=== PATIENT | male | born 1945 | race Caucasian/White ===

== ENCOUNTER → 2020-02-18 11:07 | Outpatient (CLI) | payer OTHER, SELFPAY ==
[2020-02-18 11:24] LABS: Bacteria Urine None Seen; RBC Urine None Seen (0-5/HPF); WBC Urine None Seen (0-5/HPF)
[2020-02-18 11:58] LABS: Appearance Urine UA CLEAR; Bilirubin Urine UA NEGATIVE (NEGATIVE); Color Urine UA YELLOW; Glucose Urine UA NEGATIVE (Negative); Ketones Urine UA NEGATIVE (NEGATIVE); Leukocyte Esterase Urine UA NEGATIVE (NEGATIVE); Nitrite Urine UA NEGATIVE (Negative); Occult Blood Urine UA NEGATIVE (Negative); Protein Urine UA NEGATIVE (Negative); Specific Gravity Urine UA >=1.030 (1.000-1.035); Urobilinogen Urine UA 0.2 E.U./dL (0.2)
[2020-02-18 12:04] LABS: Hemoglobin A1C% w Est Avg Glu 5.8 % (4.0-6.0)
[2020-02-18 12:10] LABS: Culture Indicated Urine Cult Not Indicated; Urine Comments Microscopic Normal
[2020-02-18 12:16] LABS: BUN Creatinine Ratio 26.4 (6-22); Blood Urea Nitrogen 24 mg/dL (9-20); Calcium 9.1 mg/dL (8.4-10.2); Carbon Dioxide 25 mmol/L (22-32); Chloride 108 mmol/L (98-107); Estimated Glomerular Filt Rate > 60.0 mL/min (>60); Glucose 105 mg/dL (80-110); HEMOLYSIS < 15 (0-50); Potassium 4.6 mmol/L (3.4-5.1); Sodium 140 mmol/L (137-145)
[2020-02-18 14:10] LABS: Add Manual Diff / Slide Review NO; Basophils Absolute Auto 0 /uL (0-100); Basophils Percent Auto 0.6 % (0-2); Eosinophils Absolute Auto 100 /uL (0-450); Eosinophils Percent Auto 2.7 % (2-4); Hematocrit 40.7 % (41-53); Hemoglobin 13.4 g/dL (13.5-17.5); Lymphocytes Absolute Auto 1200 /uL (1100-4500); Lymphocytes Percent Auto 23.1 % (25-40); Mean Corpuscular HGB Conc 32.8 % (30-36); Mean Corpuscular Hemoglobin 29.9 PG (26-34); Mean Corpuscular Volume 91.2 fL (80-100); Monocytes Absolute Auto 600 /uL (0-900); Monocytes Percent Auto 12.3 % (3-14); Neutrophils Absolute Auto 3100 /uL (1500-7000); Neutrophils Percent Auto 61.3 % (50-75); Platelet Count 193 X10^3/uL (150-400); Red Blood Cell Count 4.47 X10^6/uL (4.5-5.9); Red Cell Distribution Width 13.5 % (11.6-14.8); White Blood Cell Count 5.1 X10^3/uL (4.5-11.0)
== END ==
PROVIDERS: PCP Family Medicine; Referring Provider Orthopaedic Surgery; Visit Provider Orthopaedic Surgery
DX: Z01.812 Encounter for preprocedural laboratory examination (principal); Z01.818 Encounter for other preprocedural examination; N39.0 Urinary tract infection, site not specified; R73.9 Hyperglycemia, unspecified
CPT/HCPCS: 36415; 80048; 81001; 83036; 85025; 93005; 93010

== ENCOUNTER → 2020-03-10 08:45 | Outpatient (CLI) | payer OTHER, SELFPAY ==
[2020-03-11 02:14] LABS: COVID19 Sendout Not Detected (Not Detect)
== END ==
PROVIDERS: PCP Family Medicine; Visit Provider Physician Assistant
DX: Z11.59 Encounter for screening for other viral diseases (principal)
CPT/HCPCS: 87635

== ENCOUNTER 2020-03-14 16:45 | Observation (INO) | payer OTHER, SELFPAY ==
[2020-03-11 07:25] VITALS: BMI 27.0
[2020-03-13] VITALS (14 sets, daily range): BP systolic 95–138; BP diastolic 52–77; PULSE 67–85; RESP 12–36; TEMP 36–36.9; O2SAT 95–99; BMI 27.0
--- NOTE | 2020-03-13 | DI.RAD.S_ITS ---
PROCEDURE: [id number] W PEL IF PERFORMED INDICATIONS: ANTERIOR HIP ARTHROPLASTY TECHNIQUE: 4 intraoperative fluoroscopic images of left hip(s). COMPARISON: None. FINDINGS: Intraoperative fluoroscopic images shows left total hip arthroplasty with anatomic alignment of prosthesis. IMPRESSION: Fluoro guidance was provided intraoperatively for left hip arthroplasty. Dictated by: Humble Beard M.D. on 03/13/2020 at 12:52 Approved by: Humble Beard M.D. on 03/13/2020 at 12:59
--- NOTE | 2020-03-13 06:00 | DI.RAD.S_ITS ---
PROCEDURE: XR HIP W PEL IF DONE LT 2V INDICATIONS: left TONJA, anterior TECHNIQUE: AP pelvis and lateral view of the left hip acquired. COMPARISON: [facility], CR, [id number] W PEL IF PERFORMED, 03/13/2020, 9:56. [facility], CR, XR PELVIS WITH LATERAL HIP LEFT, 02/18/2020, 9:59. FINDINGS: Bones: Patient is status post left hip arthroplasty, with hardware components in expected positions. The hip joint appears congruent. The visualized bony structures appear intact. Soft tissues: Overlying postoperative changes are noted. No suspicious soft tissue densities. IMPRESSION: Expected alignment status post placement of left hip arthroplasty. Dictated by: Abdifatah Davis [facility] Interpreted: Enoch Victor MD on 03/13/2020 at 12:18 Approved by: Enoch Victor M.D. on 03/14/2020 at 12:56
[2020-03-13] MEDS: LACTATED RINGERS 1,000 ML 42 ML IV ×4 (07:00→11:11)
[2020-03-13] MEDS: VANCOMYCIN 1,000 MG/200 ML PIGGYBACK 200 MG IV (07:01)
[2020-03-13] MEDS: ACETAMINOPHEN 325 MG TABLET 975 MG PO (07:02)
[2020-03-13] MEDS: PREGABALIN 75 MG CAPSULE PO (07:02)
[2020-03-13] MEDS: CELECOXIB 200 MG CAPSULE PO (07:02)
--- NOTE | 2020-03-13 07:33 | SUR.OPER ---
Supine on padded [place] table with bilateral legs secured in padded positioning boots and suspended in positioning spars, operative leg in traction per surgeon. Head on one pillow. Arm on non-operative side secured on padded armboard <90 degrees abduction. Arm on operative side padded and resting across chest then secured with tape over sheet. Padded perineal post in place per surgeon.
--- NOTE | 2020-03-13 07:51 | P.OP_ITS ---
Operative Date/Time/Diagnoses Date of procedure: 03/13/20 Time of procedure: 07:51 Pre-op diagnosis: left total hip arthroplasty Post-op diagnosis: same Procedure & Clinicians Procedure: left total hip arthroplasty Same procedure as scheduled: Yes Indications: The patient has had progressively worsening left hip pain with radiographic changes consistent with arthritis. Non-operative management has failed and the patient has requested total hip replacement. The risks, benefits and alternatives to surgery were discussed with the patient prior to proceeding. Risks discussed included, but were not limited to, failure to relieve pain, leg length discrepancy, dislocation, stiffness, infection, nerve damage, deep venous thrombosis, pulmonary embolism, stroke, coma, heart attack, permanent paralysis and , as well as the potential need for eventual revision of the prosthetic. Surgeon: Kalli Dillon Aircraft Stress Analyst: Lizandro Cunningham Anesthesia Type: General and Spinal Operative Notes Findings: Severe left hip osteoarthritis, adequate quality bone, adequate stability, moderate bleeding from the acetabulum prior to screw and cup insertion Closure Type: primary Specimen(s): none sent Prosthetic devices, grafts, tissues, transplants, or devices: Dillon and Nephew 62 mm R3 3 cup, neutral poly 36 liner, 120 mm screw, size 10 standard offset anthology, 36+ 4 Oxinium head Estimated Blood Loss (mL): 800 Blood products transfused: none Procedure in detail: The patient was brought to the operating room. Patient was carefully positioned in the supine position. Time-out was performed and antibiotics were given. Anesthesia was induced. He was positioned in the on the table in order to allow hyperextension of the hip. The LEFT lower extremity was prepped and draped in a standard sterile fashion. An anterior left hip incision was made 1 fingerbreadth lateral to the anterior superior iliac spine and extended distally towards the greater trochanter. Dissection was carried out through skin and subcutaneous tissues. The skin and subcutaneous tissues were carefully injected with Lidocaine with epi. Superficial hemostasis was achieved. The fascia over the tensor fascia maria dolores was defined and incised with a knife. Two Allis clamps were used to grasp the fascia. Tensor fascia maria dolores was retracted laterally. A gelpi retractor was placed. Dissection was carried out down along the neck. The circumflex vessels were carefully identified and cauterized with the Aqua Mantis. There was good visualization of the femoral neck. A Cobra was placed superior to the neck and the gluteus fibers were carefully stripped from that superior aspect of the capsule. A 2nd retractor was placed along the inferior aspect of the neck. The rectus insertion along the capsule was partially released. A 3rd retractor that was then gently placed over the rim of the acetabulum under the rectus. Capsule was carefully incised and released from the intertrochanteric line circumferentially superior to the mid sagittal line and inferiorly to the mid sagittal line until the lesser trochanter was palpable. A tag stitch was placed both in the superior and inferior limb of the capsular insertion. Along the acetabulum capsule was also released up to the mid sagittal 12:00 position. A portion of the labrum was resected. A saw was used to perform an osteotomy at the level of the intertrochanteric line and the junction of the superior femoral neck leaving approximately 1 finger breath of residual inferior neck above the lesser trochanter. A 2nd cut was made along the femoral neck at the base of the head and a napkin ring of neck was removed. Corkscrew was placed in the femoral head and the head was removed without difficulty. Retractors were then repositioned around the acetabulum. Residual labrum was resected and additional osteophytes were removed. A reamer that was 4 mm below the templated size was placed by hand in the acetabulum and it was reamed to centralize the acetabulum. There was significant bleeding from the base of the acetabulum. Combination of an Aqua Mantis, the Bovie cautery, and some direct pressure was used to control bony acetabular bleed and which is quite brisk. It was not from a single source. We did mix some FloSeal and ultimately use it in the base of the acetabulum. There was no bleeding from the periphery of the acetabular and no significant bleeding from around the femur. It was then reamed up to 2 under the templated size and fluoroscopy was brought in to confirm the position of the reaming and depth of reaming. I reamed 1 under the anticipated size. A trial cup was placed and noted that it was appropriately sized and fluoroscopy confirmed position and depth. The component was open and inserted without difficulty fluoroscopic imaging was used to confirm that the cup had been adequately seated and was well positioned. A single screw was used to further stabilize the acetabulum. Neutral poly liner was placed. The cup was tested and noted to be stable. There was adequate hemostasis once the polyethylene liner had been placed. We did have an epinephrine soaked slope sponge which we put into the acetabulum during femoral prep but there was really no active bleeding at that point. Attention was then directed to the femur. The femur was gently hyperextended additional capsular release was performed as needed in order to allow adequate visualization of the proximal femur with elevation of the femur. Patient was placed in a hyperextended slightly adducted position with maximum external rotation. Box osteotome was used to check for any residual neck as well as sclerotic bone along the trochanter. [place] pepper was placed in the femur. Additional broaching was performed. Canal finder was used to determine the alignment of the canal and position. Size 1 broach was placed. The canal was then appropriately broached up to the templated size as long as there was adequate stability of the broach and serial advancement of the broach without excessive impingement. Specific attention was directed at avoiding varus attempting to direct the distal aspect of the broach more anteriorly and avoiding excessive anteversion. Trial reduction showed acceptable range of motion, good stability, no posterior impingement, church of leg length and appropriate lateral shuck. I also hyperflexed the hip and checked that there was no impingement anteriorly and there was good stability with flexion, adduction and internal rotation. Marcaine and Exparel were injected.. The stem was placed without difficulty. Repeat trial reduction and x-ray showed acceptable overall position, length, and no evidence of the femoral fracture. Final head was placed. Wound was meticulously irrigated with normal saline. The hip was reduced and additional Exparel and Marcaine were injected. We did a trial with the +0 and a +4 stability was little better and the x-ray looked more anatomic with a +4 femoral neck. The capsule was closed with interrupted nonabsorbable sutures. The fascia of the tensor was closed with interrupted and running Vicryl. No drain was placed. Any tensor fascia maria dolores muscle that appeared to be contused or injured which was a minimal amount was carefully resected. Capsule around the tensor was injected with Exparel and Marcaine. The skin was closed with barbed stitches for the subcutaneous tissue and skin. We also used surgical glue. The wound was dressed sterilely. Brief Betadine soak was also used and was meticulously irrigated with normal saline. Patient was transferred to recovery room in satisfactory condition. Complications: none Post-operative Condition: stable Disposition: Acute Care Plan for aftercare: The patient will be maintained on a standard total hip replacement protocol with weight bearing as tolerated and anterior hip precautions. The patient will receive Aspirin and sequential compression devices for DVT prophylaxis. The patient will be discharged home when safe for the home environment.
--- NOTE | 2020-03-13 07:51 | PM.PREOP ---
Pre-operative Note COVID-19 COVID-19 status: Negative Interval Note History & Physical reviewed/Exam performed by Physician: Yes Changes to H&P: No
[2020-03-13] MEDS: CEFAZOLIN 2 GM/100 ML FROZ.PIGGY IV ×2 (08:05→16:55)
[2020-03-13] MEDS: BUPIVACAINE LIPOSOME 266 MG/20 ML VIAL INJ (08:36)
[2020-03-13] MEDS: BUPIVACAINE 0.25% W/ EPI 30 ML VIAL 60 ML INJ (08:36)
[2020-03-13] MEDS: SODIUM CHLORIDE IRRIG SOLUTION 250 ML, POVIDONE-IODINE SPONGE STICKS 1 APPLIC IRR (08:38)
[2020-03-13] MEDS: TRANEXAMIC ACID 1,000 MG VIAL 2000 MG INJ ×2 (08:40→10:58)
[2020-03-13] MEDS: EPINEPHrine 1 MG/ML IRR (10:00)
--- NOTE | 2020-03-13 12:17 | SUR.PHASEI ---
Pt transferred to room 210. Belongings with pt. Received in room by ESTRELLA Siddiqui. bedside handoff given.
[2020-03-13] MEDS: LACTATED RINGERS 1,000 ML 125 ML IV ×2 (12:56→20:28)
[2020-03-13] MEDS: IBUPROFEN 400 MG TABLET PO ×3 (14:47→20:28)
[2020-03-13] MEDS: ACETAMINOPHEN 325 MG TABLET 650 MG PO ×2 (14:47→20:28)
--- NOTE | 2020-03-13 16:47 | PT.IIE ---
Current Diagnoses Unilateral primary osteoarthritis, left hip (03/13/20) Surgery Performed Operation Date: 03/13/20 07:45 Actual Procedures p Total Hip Arthroplasty/Anterior Approach(Left) - Kalli Dillon MD Surgical History (Last Updated 03/11/20 @ 08:15 by Donya Petit RN) History of vasectomy (Acute) Hx of appendectomy (Acute) Hx of removal of cyst (Acute) Hx of thumb surgery (Acute) Hx of tonsillectomy (Acute) Hx of transurethral resection of prostate (Acute) S/P excision of neuroma (Acute) Medical History (Last Updated 03/11/20 @ 08:17 by Donya Petit RN) Acid reflux (Acute) Enlarged prostate (Acute) Hearing impaired (Acute) Osteoarthritis (Acute) RLS (restless legs syndrome) (Acute) Skin cancer (Acute) Physical Therapy Inpatient Evaluation/Re-Eval M1 PT/OT-IP Prior Functional Status Start: 03/13/20 13:40 Freq: NEEDED Status: Active Protocol: Document 03/13/20 16:20 AW (Rec: 03/13/20 16:47 AW [email or web address]) Medical Review Prior Functional Status Medical History Reviewed Yes Communication Pt is [place] and wears bilateral hearing aids. He is an effective verbal communicator. Mobility and Gait Independent without assistive device. Pt is active, including swimming, but he has been unable to participate in recent weeks due to increasing pain. Activities of Daily Living and IADL's Pt remains independent with I/ ADL's but endorses increasing difficulty with lower body dressing tasks. Social History Household Members spouse Living Arrangements House Number of Floors (Floors) Two Floors Number of Stairs To Enter/Railing? 1 step without railing into the garage. From the garage, pt must climb another 2 steps into the house. There is no railing but pt states there are freezers next to the stairs which he can use for support. 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 Home Environment High Toilet,Walk in Shower, Built-In Shower Seat Home Equipment Front Wheel Walker,Straight Cane,Raised Toilet Seat w/ Armrests,Link Assembler Employment Status Retired Additional Social History Comment Pt lives with his , Kirsten, who is also retired. She will be available and able to assist as needed. M2 PT-IP Current Condition Start: 03/13/20 13:40 Freq: NEEDED Status: Active Protocol: Document 03/13/20 16:20 AW (Rec: 03/13/20 16:47 AW [email or web address]) Physical Therapy Current Condition Current Condition Evaluation Date 03/13/20 Treatment Diagnosis L TONJA with anterior approach; difficulty in walking Onset Date 03/13/20 Precautions Anterior Hip Precautions No Hip Extension,No Hip External Rotation Weight Bearing Status Weight Bearing Status Weight Bear as Tolerated M3 PT-IP Subjective Start: 03/13/20 13:40 Freq: NEEDED Status: Active Protocol: Document 03/13/20 16:20 AW (Rec: 03/13/20 16:47 AW [email or web address]) Subjective Physical Therapy Visit Type Type Initial Evaluation Visit Start Time 15:28 Visit Stop Time 16:10 Total Visit Minutes 42 Physical Therapy Visit Comments Patient Comments Pt is willing to participate with PT Patient Goals Pt plans to return home with spouse support. Therapy Pain Assessment Pain When Pain Assessed During Mobility Pain Present Pain Present Denied Pain M4 PT-IP Mobility and Gait Start: 03/13/20 13:40 Freq: NEEDED Status: Active Protocol: Document 03/13/20 16:20 AW (Rec: 03/13/20 16:47 AW [email or web address]) PT-Bed Mobility Assessment Supine to Sit Supine to Sit Minimal Assistance,1 Person Assistance Sit to Supine Sit to Supine Minimal Assistance,1 Person Assistance Scooting Scooting to Edge of Bed Contact Guard Assistance PT-Transfer Assessment Sit to and From Stand Sit to and from Stand Contact Guard Assistance,1 Person Assistance,Use of Upper Extremities Equipment Transfer Assistive Device Gait Belt,Front Wheeled Walker Orthotic/Prosthetic Devices or Brace: No Transfers Transfer Destination Bed Transfer Technique Forward/Backward Scoot Transfer Ability Level of Assist Minimal Assistance,1 Person Assistance Comments Mobility Comments Pt was lying in the bed when PT arrived. Supine BP was 127/ 73 HR 76. Pt reported good sensation to BLE and denied pain. He transitioned from supine to long sitting min A x 1 and then pivoted his legs toward the right side of the bed. He required CGA for scooting toward EOB as he reported sensation of lightheadedness which abated as he sat for two minutes. Pt completed sit to stand min A x 1 using FWW and reported increasing lightheadedness immediately. Pt stood for 1 minute before needing to sit. BP was 93/68 HR 90. After three minutes sitting, BP remained 90/46 HR 96. Pt was able to scoot himself laterally up toward HOB and then was assisted back to supine. PT positioned pt in trendelenburg with BP recovering to 124/68 after 4 minutes. Pt was repositioned with HOB elevated and bed alarm on, call light and all needs within reach. Reported situation to RN. Gait Assessment Comments Gait Comments Pt unable at this time. Stair Climbing Assessment Comments Stair Climbing Comments Not assessed due to hypotension in standing. PT-Balance Assessment Sitting Balance and Reactions Static Sitting Balance Ability Good Dynamic Sitting Balance Ability Good Standing Balance and Reactions Static Standing Balance Ability Fair Device Used FWW M5 PT-IP Objective Assessments Start: 03/13/20 13:40 Freq: NEEDED Status: Active Protocol: Document 03/13/20 16:20 AW (Rec: 03/13/20 16:47 AW [email or web address]) Orientation Orientation/Cognition Level of Alertness Alert Orientation Name,Day of Week,Place, Situation Language Function Ability Hard of Hearing Safety Awareness Understands Safety Issues Memory Description No Deficits Noted Gross Range of Motion Lower Extremity ROM Assessment Left Impaired Strength Lower Extremity Strength Assessment Left Impaired Coordination Assessment Gross Coordination Gross Coordination WNL Sensation Assessment Sensation Gross Sensation WNL Comments Sensation Comments Pt denies numbness BLE Muscle Tone Muscle Tone WNL Yes M6 PT-IP Treatment Start: 03/13/20 13:40 Freq: NEEDED Status: Active Protocol: Document 03/13/20 16:20 AW (Rec: 03/13/20 16:47 AW [email or web address]) Physical Therapy Treatment Exercises Exercises Ankle Pumps,Gluteal Sets,Quad Sets,Heel Slides Education Education Provided Precautions,Weight Bearing Status,Post-Op Packet,Safety Other Treatments Other Treatment Performed Provided education on role of PT, plan of care, weightbearing status, and anterior hip precautions. M7 PT-IP Assessment and Plan Start: 03/13/20 13:40 Freq: NEEDED Status: Active Protocol: Document 03/13/20 16:20 AW (Rec: 03/13/20 16:47 AW [email or web address]) PT Summary Assessment and Plan Potential Rehabilitation Potential Good Status of Condition at Evaluation Evolving Summary Impairments ROM,Strength,Balance,Bed Mobility,Transfers,Gait Assessment Summary Jim is a 74 yo man seen for PT evaluation on POD0 following L TONJA with anterior approach. He is independent in all regards at baseline. Evaluation was limited due to pt hypotension in standing requiring return to supine. Pt required min assist with bed mobility and standing but was unable to attempt transfer at this time. PT anticipates this pt will be safe to discharge home with assist and outpatient PT once medically cleared. Goals Bed Mobility Goal Standby Assistance Transfer Goal Standby Assistance,Front Wheeled Walker Gait Goal Standby Assistance,Front Wheel Walker Gait Distance 250 Other Goals - up/down 2 steps with unilateral rail or DATA COMMUNICATIONS ENGINEER - up/down platform step with FWW for entry to the gar Days to Meet Goals 2 Frequency of Treatment Frequency Of Treatment Twice a Day Treatment Plan Physical Therapy Treatment Plan Bed Mobility Training,Transfer Training,Gait Training, Therapeutic Exercise,Balance Retraining,Post Op Education, Discharge Planning,Hot or Cold Pack Other Recommendations and Next Treatment transfers, gait training with Focus FWW, stairs when able Recommendations To Nursing Amount of Assist Needed 1 Person Assist Discharge Recommendations PT Discharge Recommendations Home with Assistance, Outpatient PT Transportation Needs at Discharge Private Vehicle
[2020-03-13] MEDS: FINASTERIDE 5 MG TABLET PO (16:56)
[2020-03-13] MEDS: PANTOPRAZOLE 20 MG TABLET PO (16:56)
[2020-03-13] MEDS: DOCUSATE 100 MG CAPSULE PO (20:28)
[2020-03-13] MEDS: ASPIRIN EC 81 MG TABLET PO (20:28)
[2020-03-13] MEDS: GABAPENTIN 300 MG CAPSULE 600 MG PO (20:28)
[2020-03-14] VITALS (9 sets, daily range): BP systolic 68–128; BP diastolic 48–69; PULSE 66–90; RESP 16–19; TEMP 36.2–37.1; O2SAT 96–99
[2020-03-14] MEDS: CEFAZOLIN 2 GM/100 ML FROZ.PIGGY IV (00:13)
[2020-03-14] MEDS: IBUPROFEN 400 MG TABLET PO ×6 (00:45→20:19)
[2020-03-14] MEDS: LACTATED RINGERS 1,000 ML 125 ML IV (05:08)
[2020-03-14 06:12] LABS: Hematocrit 29.2 % (41-53); Hemoglobin 9.7 g/dL (13.5-17.5)
--- NOTE | 2020-03-14 07:48 | P.PN_ITS ---
Subjective Subjective Date Patient Seen: 03/14/20 Time Patient Seen: 07:48 Interval history: Doing well overnight. Minimal pain. Somewhat lightheaded the 1st time he attempted to get up with therapy but but has been sitting up in bed and moving around without difficulty. Exam Vital Signs (past 8 hours): - 03/14/20 00:02 03/14/20 04:35 Temperature 97.4 F L 97.2 F L Pulse Rate 68 66 Respiratory Rate 16 16 Blood Pressure 93/48 L 113/60 Pulse Oximetry 96 97 Oxygen Delivery Method Room Air Oxygen Flow Rate 0 Narrative Exam Narrative: Alert oriented, dressing is dry no significant pain with range of motion in his hip, able to do a straight leg raise and flexes hip without difficulty, calf soft bilaterally Objective Labs Result Diagrams: 03/14/20 05:29 Labs: Laboratory Results - last 24 hr 03/14/20 05:29 Hgb 9.7 L Hct 29.2 L Assessment & Plan Assessment & Plan narrative: Doing well status post left total hip arthroplasty anterior approach. Plan mobilize out of bed with physical therapy. Discontinue his Chacon catheter. Anticipate discharge to home after therapy today. Follow- up is scheduled. I gave him a prescription for oxycodone which he can have is an emergency and probably will not fill.
[2020-03-14] MEDS: ACETAMINOPHEN 325 MG TABLET 650 MG PO ×3 (08:09→20:15)
[2020-03-14] MEDS: ASPIRIN EC 81 MG TABLET PO ×2 (08:09→20:15)
[2020-03-14] MEDS: DOCUSATE 100 MG CAPSULE PO ×2 (08:09→20:16)
--- NOTE | 2020-03-14 09:29 | CM.DANOTE ---
Addendum entered by Reema Guzman LPN 03/14/20 13:33: Met with pt now and introduced self and role. Pt is a 74 year old male who admitted yesterday for a scheduled L TONJA/anterior approach. Surgeon: Dr. Alanna Dillon Payer: Christopher DEVI Admission status: SDC/confirmed by TEX Hernandez. Pt is found up in room with HOSE OPERATOR Kourtney for second session of the day. Morning treatment was hampered by symptomatic hypotension. Pt says this has been something he has had all of his life and he has learned to be cautious when getting to his feet from lying or sitting position. RN caring for pt today has updated Dr. Dillon and it is now unclear if pt will be medically cleared for the d/c today. P : Pt does confirm his plan for home with his 's supportive assist and PT reports that pt is doing well towards this goal as long as BP does not remain an issue. UR ESTRELLA Hernandez is updated. Original Note: Discharge Planning/Care Management DCP: assessment: case received, EMR reviewed and d/c order noted. Dr. Dillon states pt may d/c home today with OUTPT PT once cleared by PT. CM Discharge Assessment Start: 03/14/20 09:29 Freq: Status: Active Protocol: Document 03/14/20 09:29 ITV (Rec: 03/14/20 09:29 ITV [id number]) Discharge Planning Assessment Advance Directives? No History Provided By Medical Record Prior Living Arrangements House Household Members spouse Review Status In Process Pre-Anesthesia Assessment Start: 03/11/20 07:25 Freq: Status: Active Protocol: Document 03/11/20 07:25 CAB (Rec: 03/11/20 08:31 CAB [id number]) Pre-Anesthesia Assessment Preferred Name Justino Patient Information Reviewed Via Phone Assessment Assessment Completed With Patient H&P Completed Within 30 Days Yes Diagnostic Results BMP/CMP,CBC,EKG,Other Comment Labs/EKG @ [facility], COVID screen @ [facility] 03/10/20 Negative Primary Care Provider Tayo Andrea Seen Specialist in Last 12 Months Yes Specialist Seen Motor And Controls Tester,Orthopedist Primary Language Latvian Pattern Grader Cutter Required No Height 190.5 cm Weight 97.976 kg Body Mass Index (BMI) 27.0 Hearing Ability Hard of Hearing,Use of Hearing Aid Visual Assist Glasses Dentition Type Teeth, Natural Present Barriers to Learning Auditory Hx Anesthesia Reactions No Hx Family Anesthesia Reaction No Hx Malignant Hyperthermia No Hx Blood Transfusions No Anesthesia Review Requested No alcohol intake former Smoking Status Never smoker Substance Use Type does not use Pain Present Pain Reported Musculoskeletal Symptoms Abnormal Gait,Back Pain, Difficulty Walking,Joint Pain, Limited Range of Motion, Numbness,Radiating Pain into Limb,Tingling History of Falling (Recent or History of No ) Patient is completely paralyzed or No completely immobile Mental Status Oriented to own ability Comment Normally active w/daily swimming Is patient on oxygen? No Does patient have BURTON/SOB No Hx Sleep Apnea No Currently Taking a Beta Haylee No Can You Climb a Flight of Stairs Without Yes SOB Hx Chest Pain No Hx SOB No Hx Syncope or Dizziness No Anti-Coagulant Therapy No Has a Advertising Account Representative No Cardiac Testing No Hx Pacemaker/ICD No Pacemaker Rep Required? No Cardiac Clearance Received Not Applicable Diet Type At Home Regular dysphagia No Gastrointestinal Symptoms Constipation,Reflux Genitourinary Symptoms Change in Urinary Stream Bladder Pattern Nocturia,Retention Urinary Catheter Present No Hx Urinary Self Catheterization No Diabetes Yes HgbA1C 5.8 Date 02/18/20 Hx Drug Resistant Organism No Presence of External or Internal Medical Yes: [place] hearing aids Devices Have you had any close contact with No someone diagnosed with COVID-19? Marital Status Lives With spouse Prior Living Arrangements House Number of Floors (Floors) Two Floors Support System Spouse Does the Patient Have Assistance After Yes Surgery Patient Discharge Plan Description Return Home Comment Pt advised possible overnight length of stay per surgeon Feels Safe in Current Environment Yes Been Physically Hurt or Threatened By a No Person in Current Environment Do you have thoughts of harming yourself None or others? Are you currently considering suicide? No Do you have a plan to hurt yourself or No Plan others? Do You Have Any Spiritual Beliefs That No May Affect Your HC Choices? Do You Have Any Cultural Practices That No May Affect Your HC Choices? Comment Oriental Orthodox Who Can We Speak to About Patient's Care Family, family Identifying Code for Release of Patient Declines to issue Information Health Care Proxy/Next of Kin Kirsten () Health Care Proxy Emergency Contact Name Kirsten () Emergency Contact Advance Directives? No Power of Electronics Warfare Technician No PAC Instructions Durable medical equipment, Medications to take/avoid, Nasal antibiotic,No ETOH/ petroleum product on skin DOS, NPO,Pre-surgical wash,Sturdy shoes/comfortable clothes,Do not bring valuables and remove jewelry
--- NOTE | 2020-03-14 10:47 | PC.NURSE ---
Addendum entered by Alber Blanco R.N. 03/14/20 15:39: Left message w/ Dr. Dillon at 1540 asking for patient to stay one more night. Addendum entered by Alber Blanco R.N. 03/14/20 15:33: Bladder scan was 173, at 1350. At 1530 patient voided 700cc. PT is concerned about patient leaving, will call Dr. Dillon and leave a message that patient should stay one more night. Addendum entered by Alber Blanco R.N. 03/14/20 13:46: Patient still hypotensive w/ physical therapy 74/51. 4 cups of water w/ ice given to patient. Patient still hasn't urinated since Catheter was pulled this AM. I will ask TRAVELING FREIGHT AGENT to do a bladder scan. Original Note: Patient was up w/ PT, and patient was hypotensive. BP's went down to 68/50, 82/57. Patient was symptomatic feeling fuzzy. Will call Dr. Dillon and alert her of patient progress.
--- NOTE | 2020-03-14 10:54 | PT.IPTN ---
Current Diagnoses Unilateral primary osteoarthritis, left hip (03/13/20) Surgery Performed Operation Date: 03/13/20 07:45 Actual Procedures p Total Hip Arthroplasty/Anterior Approach(Left) - Kalli Dillon MD Physical Therapy Treatment Note M2 PT-IP Current Condition Start: 03/13/20 13:40 Freq: NEEDED Status: Active Protocol: Document 03/13/20 16:20 AW (Rec: 03/13/20 16:47 AW [email or web address]) Physical Therapy Current Condition Current Condition Evaluation Date 03/13/20 Treatment Diagnosis L TONJA with anterior approach; difficulty in walking Onset Date 03/13/20 Precautions Anterior Hip Precautions No Hip Extension,No Hip External Rotation Weight Bearing Status Weight Bearing Status Weight Bear as Tolerated M3 PT-IP Subjective Start: 03/13/20 13:40 Freq: NEEDED Status: Active Protocol: Document 03/14/20 10:30 KS (Rec: 03/14/20 12:39 KS [id number]) Subjective Physical Therapy Visit Type Type Treatment Note Visit Start Time 10:30 Visit Stop Time 10:54 Total Visit Minutes 24 Number of CROSS ROLLER Visits 1 Physical Therapy Visit Comments Patient Comments Pt is willing to participate with PT Patient Goals Pt plans to return home with spouse support. M4 PT-IP Mobility and Gait Start: 03/13/20 13:40 Freq: NEEDED Status: Active Protocol: Document 03/14/20 10:30 KS (Rec: 03/14/20 12:39 KS [id number]) PT-Bed Mobility Assessment Supine to Sit Supine to Sit Contact Guard Assistance,1 Person Assistance,Head of Bed Elevated Sit to Supine Sit to Supine Contact Guard Assistance,1 Person Assistance Scooting Scooting to Edge of Bed Contact Guard Assistance PT-Transfer Assessment Sit to and From Stand Sit to and from Stand Contact Guard Assistance,1 Person Assistance,Use of Upper Extremities Equipment Transfer Assistive Device Gait Belt,Front Wheeled Walker Orthotic/Prosthetic Devices or Brace: No Transfers Transfer Destination Bed Transfer Technique Forward/Backward Scoot Transfer Ability Level of Assist Contact Guard Assistance,1 Person Assistance,Use of Upper Extremities Comments Mobility Comments Pt in bed upon arrival from therapy and wanting to ambulate. Pt CGA for sup<>sit w/ HOB elevated and CGA for scooting to EOB. CGA for sit<> stand, pt able to maintain standing 2 min w/ FWW, however pt was hypotensive, w/ BP dropping to 68/50 upon standing and feeling slightly symptomatic w/ feelings of fuzziness. Pt instructed to sit back down and BP:82/57. Pt CGA for sit<>sup and left in bed w/ all needs in reach. Gait Assessment Comments Gait Comments Pt unable at this time d/t symptomatic low BP. Stair Climbing Assessment Comments Stair Climbing Comments Not assessed due to hypotension in standing. PT-Balance Assessment Sitting Balance and Reactions Static Sitting Balance Ability Good Dynamic Sitting Balance Ability Good Standing Balance and Reactions Static Standing Balance Ability Fair Device Used FWW M5 PT-IP Objective Assessments Start: 03/13/20 13:40 Freq: NEEDED Status: Active Protocol: Document 03/13/20 16:20 AW (Rec: 03/13/20 16:47 AW [email or web address]) Orientation Orientation/Cognition Level of Alertness Alert Orientation Name,Day of Week,Place, Situation Language Function Ability Hard of Hearing Safety Awareness Understands Safety Issues Memory Description No Deficits Noted Gross Range of Motion Lower Extremity ROM Assessment Left Impaired Strength Lower Extremity Strength Assessment Left Impaired Coordination Assessment Gross Coordination Gross Coordination WNL Sensation Assessment Sensation Gross Sensation WNL Comments Sensation Comments Pt denies numbness BLE Muscle Tone Muscle Tone WNL Yes M6 PT-IP Treatment Start: 03/13/20 13:40 Freq: NEEDED Status: Active Protocol: Document 03/14/20 10:30 KS (Rec: 03/14/20 12:39 KS [id number]) Physical Therapy Treatment Exercises Exercises Ankle Pumps,Gluteal Sets,Quad Sets,Heel Slides Education Education Provided Precautions,Weight Bearing Status,Post-Op Packet,Safety Other Treatments Other Treatment Performed Reviewed ant hip precautions M7 PT-IP Assessment and Plan Start: 03/13/20 13:40 Freq: NEEDED Status: Active Protocol: Document 03/14/20 10:30 KS (Rec: 03/14/20 12:39 KS [id number]) PT Summary Assessment and Plan Potential Rehabilitation Potential Good Status of Condition at Evaluation Evolving Summary Impairments ROM,Strength,Balance,Bed Mobility,Transfers,Gait Assessment Summary Pt remains limited by symptomatic low BP, but is CGA for bed mobility and sit<> stands. Able to recall anterior hip precautions. D/c depending on pts progress and will have to complete staits prior to d/c. Anticipating pt to mobilize and progress well after BP stabilized. Goals Bed Mobility Goal Standby Assistance Transfer Goal Standby Assistance,Front Wheeled Walker Gait Goal Standby Assistance,Front Wheel Walker Gait Distance 250 Other Goals - up/down 2 steps with unilateral rail or TRADEMARK AFFIXER - up/down platform step with FWW for entry to the to Meet Goals 2 Frequency of Treatment Frequency Of Treatment Twice a Day Treatment Plan Physical Therapy Treatment Plan Bed Mobility Training,Transfer Training,Gait Training, Therapeutic Exercise,Balance Retraining,Post Op Education, Discharge Planning,Hot or Cold Pack Other Recommendations and Next Treatment transfers, gait training with Focus FWW, stairs when able Recommendations To Nursing Amount of Assist Needed 1 Person Assist Discharge Recommendations PT Discharge Recommendations Home with Assistance, Outpatient PT Transportation Needs at Discharge Private Vehicle
--- NOTE | 2020-03-14 13:40 | PT.IPTN ---
Current Diagnoses Unilateral primary osteoarthritis, left hip (03/13/20) Surgery Performed Operation Date: 03/13/20 07:45 Actual Procedures p Total Hip Arthroplasty/Anterior Approach(Left) - Kalli Dillon MD Physical Therapy Treatment Note M2 PT-IP Current Condition Start: 03/13/20 13:40 Freq: NEEDED Status: Active Protocol: Document 03/13/20 16:20 AW (Rec: 03/13/20 16:47 AW [email or web address]) Physical Therapy Current Condition Current Condition Evaluation Date 03/13/20 Treatment Diagnosis L TONJA with anterior approach; difficulty in walking Onset Date 03/13/20 Precautions Anterior Hip Precautions No Hip Extension,No Hip External Rotation Weight Bearing Status Weight Bearing Status Weight Bear as Tolerated M3 PT-IP Subjective Start: 03/13/20 13:40 Freq: NEEDED Status: Active Protocol: Document 03/14/20 13:04 KS (Rec: 03/14/20 15:41 KS [id number]) Subjective Physical Therapy Visit Type Type Treatment Note Visit Start Time 13:04 Visit Stop Time 13:40 Total Visit Minutes 36 Number of DIGITAL COMMUNITY MANAGER Visits 2 Physical Therapy Visit Comments Patient Comments Pt is willing to participate with PT Patient Goals Pt plans to return home with spouse support. M4 PT-IP Mobility and Gait Start: 03/13/20 13:40 Freq: NEEDED Status: Active Protocol: Document 03/14/20 13:04 KS (Rec: 03/14/20 15:41 KS [id number]) PT-Bed Mobility Assessment Scooting Scooting to Edge of Bed Contact Guard Assistance PT-Transfer Assessment Sit to and From Stand Sit to and from Stand Contact Guard Assistance,1 Person Assistance,Use of Upper Extremities Equipment Transfer Assistive Device Gait Belt,Front Wheeled Walker Orthotic/Prosthetic Devices or Brace: No Transfers Transfer Destination Chair,Toilet Transfer Technique pt ambulated w/ FWW Transfer Ability Level of Assist Contact Guard Assistance,1 Person Assistance,Use of Upper Extremities Comments Mobility Comments Pt in chair upon arrival from therapy and BP: 95/54. Pt sit< >stand w/ FWW CGA w/ cues for hand placement. After 2 min standing, pts BP: 87/53 and asymptomatic. Pt then ambulated to toilet, but was unable to void, pts BP assessed in standing again and 95/49. Pt then ambulated ~40 ft in room w/ FWW and CGA. Pt then stand<>sit for rest break and BP: 99/55 in sitting. Pt sit<>stand again and BP dropped to 74/51. Instructed pt to sit back down. Pt left in room w/ RN and all needs in reach. Gait Assessment Gait Gait Assistance Required: Contact Guard Assist,1 Person Assist Distance (Feet) 50 Able to Maintain Weight Bearing Status Yes During Gait Assistive Devices Assistive Device Gait Belt,Front Wheeled Walker Orthotic/Prosthetic Devices or Brace: No Gait Deviations General Gait Pattern Antalgic,Decreased Stride Length,Decreased Feet Clearance Factors Limiting Gait Function Factors Limiting Gait Function Decreased Activity Tolerance, Decreased Strength,Limited Range of Motion,Pain Comments Gait Comments Pt ambulated ~50 ft total w/ FWW and CGA. Pt has decreased stride and foot clearance and needed cues for FWW management . Pt relying heavily on BUE to offload LLE when ambulating. Stair Climbing Assessment Comments Stair Climbing Comments Not assessed due to hypotension in standing. Pt will need to complete prior to d/c. PT-Balance Assessment Sitting Balance and Reactions Static Sitting Balance Ability Good Dynamic Sitting Balance Ability Good Standing Balance and Reactions Static Standing Balance Ability Fair Dynamic Standing Balance Ability Fair Device Used FWW M5 PT-IP Objective Assessments Start: 03/13/20 13:40 Freq: NEEDED Status: Active Protocol: Document 03/13/20 16:20 AW (Rec: 03/13/20 16:47 AW [id number]) Orientation Orientation/Cognition Level of Alertness Alert Orientation Name,Day of Week,Place, Situation Language Function Ability Hard of Hearing Safety Awareness Understands Safety Issues Memory Description No Deficits Noted Gross Range of Motion Lower Extremity ROM Assessment Left Impaired Strength Lower Extremity Strength Assessment Left Impaired Coordination Assessment Gross Coordination Gross Coordination WNL Sensation Assessment Sensation Gross Sensation WNL Comments Sensation Comments Pt denies numbness BLE Muscle Tone Muscle Tone WNL Yes M6 PT-IP Treatment Start: 03/13/20 13:40 Freq: NEEDED Status: Active Protocol: Document 03/14/20 13:04 KS (Rec: 03/14/20 15:41 KS [id number]) Physical Therapy Treatment Education Education Provided Precautions,Weight Bearing Status,Post-Op Packet,Safety M7 PT-IP Assessment and Plan Start: 03/13/20 13:40 Freq: NEEDED Status: Active Protocol: Document 03/14/20 13:04 KS (Rec: 03/14/20 15:41 MARION [id number]) PT Summary Assessment and Plan Potential Rehabilitation Potential Good Status of Condition at Evaluation Evolving Summary Impairments ROM,Strength,Balance,Bed Mobility,Transfers,Gait Progress Towards Goals Slow Progress due to Medical Issues Assessment Summary Pt able to ambulate ~50 ft this PM and CGA for transfers and ambulation w/ FWW. Pt remains limited by low BP 99/ 55 in sitting and dropped to 74/51 in standing. Pt will have to complete stair training prior to d/c. Anticipating pt will be able to return home after stair training/ additional acute rehab treatment and when medically stable. Goals Bed Mobility Goal Standby Assistance Transfer Goal Standby Assistance,Front Wheeled Walker Gait Goal Standby Assistance,Front Wheel Walker Gait Distance 250 Other Goals - up/down 2 steps with unilateral rail or HEAD GAUGE UNIT OPERATOR - up/down platform step with FWW for entry to the Days to Meet Goals 2 Frequency of Treatment Frequency Of Treatment Twice a Day Treatment Plan Physical Therapy Treatment Plan Bed Mobility Training,Transfer Training,Gait Training, Therapeutic Exercise,Balance Retraining,Post Op Education, Discharge Planning,Hot or Cold Pack Other Recommendations and Next Treatment transfers, gait training with Focus FWW, stairs when able Recommendations To Nursing Amount of Assist Needed 1 Person Assist Discharge Recommendations PT Discharge Recommendations Home with Assistance, Outpatient PT Transportation Needs at Discharge Private Vehicle
[2020-03-14] MEDS: PANTOPRAZOLE 20 MG TABLET PO (17:16)
[2020-03-14] MEDS: FINASTERIDE 5 MG TABLET PO (17:17)
[2020-03-14] MEDS: GABAPENTIN 300 MG CAPSULE 600 MG PO (20:16)
--- NOTE | 2020-03-14 21:56 | PC.NURSE ---
PT is A and O x 4, VSS, BP = 104/60, HR 74. Pt is independent in room, rates pain 2-4/10. He is eating and drinking, voiding qs, + BTs, and able to sleep. IS = 2500.
[2020-03-15] MEDS: IBUPROFEN 400 MG TABLET PO ×3 (00:26→09:21)
[2020-03-15 00:57] VITALS: BP 103/49; PULSE 81; RESP 16; TEMP 36.4; O2SAT 94
[2020-03-15 03:10] VITALS: BP 102/56; PULSE 80; RESP 16; TEMP 36.7; O2SAT 95
[2020-03-15 07:30] LABS: Hematocrit 26.7 % (41-53)
[2020-03-15 07:55] VITALS: PULSE 72; RESP 16; O2SAT 98
[2020-03-15 08:46] VITALS: BP 117/77; BP 118/68; BP 87/49; PULSE 75; PULSE 82; PULSE 94
[2020-03-15 09:15] VITALS: BP 116/70; PULSE 80; RESP 15; TEMP 36.3; O2SAT 96
[2020-03-15] MEDS: DOCUSATE 100 MG CAPSULE PO (09:21)
[2020-03-15] MEDS: ASPIRIN EC 81 MG TABLET PO (09:21)
[2020-03-15] MEDS: ACETAMINOPHEN 325 MG TABLET 650 MG PO (09:21)
--- NOTE | 2020-03-15 09:44 | PM.PNPO.1 ---
Subjective Subjective Date Patient Seen: 03/15/20 Time Patient Seen: 09:44 Interval history: POD #2 s/p left total hip arthroplasty with Dr. Dillon. He has been hypotensive throughout his stay. He is going to work with physical therapy today for the stairs. He lives home with his . Exam Vital Signs (past 8 hours): - 03/15/20 03:10 03/15/20 07:55 03/15/20 08:46 Temperature 98.1 F Pulse Rate 80 72 Pulse Rate [Orthostatic Lying] 75 Pulse Rate [Orthostatic Sitting] 82 Pulse Rate [Orthostatic Standing] 94 H Respiratory Rate 16 16 Blood Pressure 102/56 L Blood Pressure [Orthostatic Lying] 118/68 Blood Pressure [Orthostatic Sitting] 117/77 Blood Pressure [Orthostatic Standing] 87/49 L Pulse Oximetry 95 98 Oxygen Delivery Method Room Air Oxygen Flow Rate 0 Narrative Exam Narrative: Patient is sitting at bedside chair no acute distress. Alert orient x3. Dressing on left hip is CDI. Calves are soft, compressible, nontender bilaterally. He is able to dorsiflex and plantar flex. Objective Labs Result Diagrams: 03/15/20 07:15 Labs: Laboratory Results - last 24 hr 03/15/20 07:15 Hgb 9.0 L Hct 26.7 L Assessment & Plan Post-op Postoperative Procedures: Procedures Operation Date: 03/13/20 07:45 Actual Procedures Side Surgeon p Total Hip Arthroplasty/Anterior Approach Left Kalli A MD Santana Patient will mobilize with physical therapy today. He should be able to discharge home today with his .
--- NOTE | 2020-03-15 10:16 | PT.IPTN ---
Current Diagnoses Unilateral primary osteoarthritis, left hip (03/13/20) Surgery Performed Operation Date: 03/13/20 07:45 Actual Procedures p Total Hip Arthroplasty/Anterior Approach(Left) - Kalli Dillon MD Physical Therapy Treatment Note M2 PT-IP Current Condition Start: 03/13/20 13:40 Freq: NEEDED Status: Active Protocol: Document 03/13/20 16:20 AW (Rec: 03/13/20 16:47 AW [id number]) Physical Therapy Current Condition Current Condition Evaluation Date 03/13/20 Treatment Diagnosis L TONJA with anterior approach; difficulty in walking Onset Date 03/13/20 Precautions Anterior Hip Precautions No Hip Extension,No Hip External Rotation Weight Bearing Status Weight Bearing Status Weight Bear as Tolerated M3 PT-IP Subjective Start: 03/13/20 13:40 Freq: NEEDED Status: Active Protocol: Document 03/15/20 09:50 KS (Rec: 03/15/20 11:42 KS [id number]) Subjective Physical Therapy Visit Type Type Treatment Note Visit Start Time 09:50 Visit Stop Time 10:16 Total Visit Minutes 26 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 M4 PT-IP Mobility and Gait Start: 03/13/20 13:40 Freq: NEEDED Status: Active Protocol: Document 03/15/20 09:50 KS (Rec: 03/15/20 11:42 KS [id number]) PT-Bed Mobility Assessment Supine to Sit Supine to Sit Standby Assistance,1 Person Assistance Sit to Supine Sit to Supine Standby Assistance,1 Person Assistance Scooting Scooting to Edge of Bed Standby Assistance Scooting Up and Down in Bed Standby Assistance PT-Transfer Assessment Sit to and From Stand Sit to and from Stand Standby Assistance,1 Person Assistance,Use of Upper Extremities Equipment Transfer Assistive Device Gait Belt,Front Wheeled Walker Orthotic/Prosthetic Devices or Brace: No Transfers Transfer Destination Bed,Chair Transfer Technique pt ambulated w/ FWW Transfer Ability Level of Assist Standby Assistance,Contact Guard Assistance,1 Person Assistance,Use of Upper Extremities Comments Mobility Comments Pt in chair upon arrival from therapy. BP sitting 105/54. Pt SBA for scooting to EOC and for sit<>stand w/ FWW. Pts BP 88/50 after 2 min standing and asymptomatic, approved by RN to continue therapy. Pt then ambulated to w/c in hallwat and stand<>sit SBA w/ cues for hand placement and slow descent. Pt transported in w/c to steps for energy conservation. Pt then sit<> stand and ascended/descended 1 platform step x2 w/ FWW and SBA to CGA w/ cues for sequencing. Pt then ambulated ~150 ft back to room and performed bed mobility SBA w/ cues to use gait belt for LLE guidance into and out of bed. Reveiwed LE strengthening exercises and pt stated he feels safe and is eager to return home and agrees to use FWW for ambulation. pt left in bed w/ [employer] in room. Gait Assessment Gait Gait Assistance Required: Standby Assistance,Contact Guard Assist,1 Person Assist Distance (Feet) 160 Able to Maintain Weight Bearing Status Yes During Gait Assistive Devices Assistive Device Gait Belt,Front Wheeled Walker Orthotic/Prosthetic Devices or Brace: No Gait Deviations General Gait Pattern Antalgic,Decreased Stride Length,Decreased Feet Clearance Factors Limiting Gait Function Factors Limiting Gait Function Decreased Activity Tolerance, Decreased Strength,Limited Range of Motion,Pain Comments Gait Comments Pt ambulated ~160 ft total w/ FWW and SBA to CGA. Pt denied any lightheadedness during ambulation. Min cues for FWW use and heel toe walking. Stair Climbing Assessment Evaluation Level of Assist On Stairs Standby Assistance,Contact Guard Assistance,1 Person Assistance Devices Stair Climbing Assistive Devices Front Wheel Walker Technique/Endurance Stair Climbing Direction Ascend and Descend Stair Climbing Technique Step to Step Number of Steps Climbed 1 Stair Climbing Set # Repetitions (reps) 2 Comments Stair Climbing Comments Pt ascended/descended 1 platform step x2 w/ FWW and SBA to CGA w/ cues for leg sequencing. Pt states he will be able to do stairs at home no problem and denied lightheadedness or dizziness. PT-Balance Assessment Sitting Balance and Reactions Static Sitting Balance Ability Good Dynamic Sitting Balance Ability Good Standing Balance and Reactions Static Standing Balance Ability Fair Dynamic Standing Balance Ability Fair Device Used FWW M5 PT-IP Objective Assessments Start: 03/13/20 13:40 Freq: NEEDED Status: Active Protocol: Document 03/13/20 16:20 AW (Rec: 03/13/20 16:47 AW [id number]) Orientation Orientation/Cognition Level of Alertness Alert Orientation Name,Day of Week,Place, Situation Language Function Ability Hard of Hearing Safety Awareness Understands Safety Issues Memory Description No Deficits Noted Gross Range of Motion Lower Extremity ROM Assessment Left Impaired Strength Lower Extremity Strength Assessment Left Impaired Coordination Assessment Gross Coordination Gross Coordination WNL Sensation Assessment Sensation Gross Sensation WNL Comments Sensation Comments Pt denies numbness BLE Muscle Tone Muscle Tone WNL Yes M6 PT-IP Treatment Start: 03/13/20 13:40 Freq: NEEDED Status: Active Protocol: Document 03/15/20 09:50 KS (Rec: 03/15/20 11:42 KS [id number]) Physical Therapy Treatment Exercises Exercises Ankle Pumps,Gluteal Sets,Quad Sets,Heel Slides Education Education Provided Precautions,Weight Bearing Status,Post-Op Packet,Safety Other Treatments Other Treatment Performed Reviewed ant hip precautions M7 PT-IP Assessment and Plan Start: 03/13/20 13:40 Freq: NEEDED Status: Active Protocol: Document 03/15/20 09:50 KS (Rec: 03/15/20 11:42 KS [id number]) PT Summary Assessment and Plan Potential Rehabilitation Potential Good Status of Condition at Evaluation Evolving Summary Impairments ROM,Strength,Balance,Bed Mobility,Transfers,Gait Progress Towards Goals Progressing Toward Goals Assessment Summary Pt is SBA for mobility and transfers, SBA to CGA for ambulation and stairs. Pt ambulated ~160 ft w/ FWW and ascended/descended 1 plaftorm step x2 w/ cues for leg sequencing. Pt remains hypotensive, but denies symptoms. Pt will benefit from outpatient rehab, which he has set up, for ROM and strengthening. Goals Bed Mobility Goal Standby Assistance Transfer Goal Standby Assistance,Front Wheeled Walker Gait Goal Standby Assistance,Front Wheel Walker Gait Distance 250 Other Goals - up/down 2 steps with unilateral rail or REGULATORY ATTORNEY - up/down platform step with FWW for entry to the to Meet Goals 2 Frequency of Treatment Frequency Of Treatment Twice a Day Treatment Plan Physical Therapy Treatment Plan Bed Mobility Training,Transfer Training,Gait Training, Therapeutic Exercise,Balance Retraining,Post Op Education, Discharge Planning,Hot or Cold Pack Other Recommendations and Next Treatment transfers, gait training with Focus FWW, stairs when able Recommendations To Nursing Amount of Assist Needed 1 Person Assist Discharge Recommendations PT Discharge Recommendations Home with Assistance, Outpatient PT Transportation Needs at Discharge Private Vehicle
--- NOTE | 2020-03-15 12:29 | PC.NURSE ---
All discharge instructions given to patient and . Patient and verbalized understanding of discharge instructions. Discharge teaching done about movement, weight bearing, diet, anterior instructions for hip replacement, s/s of infection, falls, and s/s of stroke. Patient educated about new medications. Patient and given paper prescription for Oxycodone to bring to pharmacy. Aquacell dressing given to patient in case of his coming off, it was peeling at an edge. Patient left facility with his via wheelchair and private car.
== END 2020-03-15 12:35 | disposition home or self-care (01) ==
LOC: OR 03-17 07:45 → AC 03-17 07:45
PROVIDERS: Admitting Provider Orthopaedic Surgery; PCP Family Medicine; Referring Provider Family Medicine; Visit Provider Orthopaedic Surgery
PROC: (CPT 27130; principal; 2020-03-13 07:45)
DX: M16.12 Unilateral primary osteoarthritis, left hip (principal)
CPT/HCPCS: 27130; 36415; 36592; 73502; 73503; 76000; 85014; 85018; 94760; 97110; 97116; 97161; 97530; C1776; G0378; C9290; J0171; J0690; J1100; J2250; J2274; J2405; J2704; J3010